=== PATIENT | female | born 1990 | race Caucasian/White ===

== ENCOUNTER → 2019-06-09 11:09 | Outpatient (CLI) | payer OTHER, SELFPAY ==
[2019-06-09 11:58] LABS: Add Manual Diff / Slide Review NO; Basophils Absolute Auto 0 /uL (0-100); Basophils Percent Auto 0.3 % (0-2); Eosinophils Absolute Auto 0 /uL (0-450); Eosinophils Percent Auto 0.3 % (2-4); Lymphocytes Absolute Auto 1800 /uL (1100-4500); Lymphocytes Percent Auto 15.1 % (25-40); Mean Corpuscular HGB Conc 34.1 % (30-36); Mean Corpuscular Hemoglobin 27.9 PG (26-34); Monocytes Absolute Auto 600 /uL (0-900); Monocytes Percent Auto 5.2 % (3-14); Neutrophils Absolute Auto 9500 /uL (1500-7000); Neutrophils Percent Auto 79.1 % (50-75); Platelet Count 285 X10^3/uL (150-400); Red Cell Distribution Width 13.6 % (11.6-14.8)
[2019-06-09 12:21] LABS: Appearance Urine UA SL CLOUDY; Bilirubin Urine UA NEGATIVE (NEGATIVE); Color Urine UA YELLOW; Glucose Urine UA NEGATIVE (Negative); Ketones Urine UA TRACE (NEGATIVE); Leukocyte Esterase Urine UA 3+ (NEGATIVE); Nitrite Urine UA NEGATIVE (Negative); Occult Blood Urine UA TRACE-INTACT (Negative); Protein Urine UA TRACE (Negative); Urobilinogen Urine UA 0.2 E.U./dL (0.2)
[2019-06-09 12:40] LABS: Squamous Epithelial Cell Urine 10-30 /HPF (0-5/HPF)
[2019-06-09 12:41] LABS: WBC Urine 30-100/HPF (0-5/HPF)
[2019-06-09 12:43] LABS: Bacteria Urine Many (>30); RBC Urine 1-5/HPF (0-5/HPF)
[2019-06-09 13:46] LABS: Urine N gonorrhoeae NOT DETECTED
[2019-06-09 13:54] LABS: Urine Chlamydia NOT DETECTED
[2019-06-09 18:25] LABS: Hepatitis B Surface Antigen NEGATIVE s/c (NEGATIVE)
[2019-06-09 18:55] LABS: HIV 1 & 2 Ab/Ag 4th Gen Combo NEGATIVE (NEGATIVE); Hep C Virus Ab w/Reflex Quant NEGATIVE s/c (NEGATIVE)
[2019-06-10 14:44] LABS: RPR Screen Non Reactive (Non Reactive)
[2019-06-10 14:49] LABS: Varicella IgG Antibody <135 index (Immune >165)
== END ==
PROVIDERS: Referring Provider Specialist; Visit Provider Specialist
DX: Z34.81 Encounter for supervision of other normal pregnancy, first trimester (principal)
CPT/HCPCS: 36415; 80055; 81003; 81015; 86787; 86803; 86850; 86900; 86901; 87086; 87389; 87491; 87591

== ENCOUNTER → 2019-08-02 10:42 | Outpatient (CLI) | payer OTHER, SELFPAY ==
--- NOTE | 2019-08-02 10:44 | DI.US.S_ITS ---
PROCEDURE: US OB >= 14 WEEKS FETUS INDICATIONS: 20 WEEK ANATOMY SCAN OUTSIDE/PRIOR DATING DATA: Last menstrual period (LMP): 03/09/19. LMP-based estimated date of delivery (CUH): 12/14/19. First dating scan (date and location): 05/12/19, [place]. Estimated date of delivery (CHU) from first dating scan: 12/11/19. TECHNIQUE: Real-time scanning was performed of the fetus, with image documentation and biometric measurements. COMPARISON: [facility], , OB >= 14 WEEKS FETUS, 07/07/2019, 12:25. [facility], , OB <= 14 WEEKS FETUS, 05/12/2019, 15:34. FINDINGS: General: A single live intrauterine gestation is present. Presentation: Breech. Placenta: Placental position is fundal/posterior, without previa. Amniotic fluid index: 13.9 cm, normal range is 5-24 cm. heart rate: 160 beats per minute. Maternal cervical canal: 4.4 cm long. Normal lower limit is 2.5 cm. biometrics: Biparietal diameter: 5.1 cm equals 21 weeks 3 days Head circumference: 19 cm 21 weeks 2 days Abdominal circumference: 16.1 cm equals 21 weeks 1 day Femur length: 3.6 cm equals 21 weeks 2 days Estimated gestational age from initial scan: 21 weeks 2 days Composite gestational age from present scan: 21 weeks 2 days Estimated weight and percentile: 411 g, 43 Measurement variability for biometric dating: +/- 7 days from 14 weeks to 15 weeks 6 days gestation, +/- 10 days from 16 weeks to 21 weeks 6 days gestation, +/- 2 weeks from 22 weeks to 27 weeks 6 days gestation, +/- 3 weeks for 28 weeks gestation or later. weight reference: 4500 g or EFW >90/95% is considered macrosomia or large for gestational age. EFW <10% is small for gestational age. EFW 5% or less is considered intra-uterine growth restriction. Anatomic survey: Neuro: Ventricles are non-dilated at less than 10 mm. Cisterna magna is normal at 3-11 mm. Cerebellum is normal in size and morphology. Nuchal skin fold: Normal at less than 6 mm between 14-21 weeks gestational age. Face: Nose and lips, facial profile are normal. Spine: No evidence for spina bifida. Heart: 4-chambered heart is present, with normal ventricular outflow tracts. Diaphragm: Diaphragm is intact. Stomach: Left-sided stomach is present. Kidneys: No hydronephrosis. Normal is less than 5 mm in 2nd trimester, less than 7 mm in 3rd trimester. Cord: 3-vessel cord has orthotopic insertion. Bladder: Normal in size. Extremities: All 4 extremities identified. IMPRESSION: A single live intrauterine is seen. No anatomic abnormalities are identified. No significant discrepancy is found between the estimated gestational age based on these images and the estimated gestational age based upon the given prior dating. Dictated by: Ifeanyi Coulter M.D. on 08/02/2019 at 14:53 Approved by: Ifeanyi Coulter M.D. on 08/02/2019 at 14:55
== END ==
PROVIDERS: Referring Provider Specialist; Visit Provider Specialist
DX: Z34.82 Encounter for supervision of other normal pregnancy, second trimester (principal); Z3A.21 21 weeks gestation of pregnancy
CPT/HCPCS: 76811

== ENCOUNTER → 2019-09-08 10:04 | Outpatient (CLI) | payer OTHER, SELFPAY ==
[2019-09-08 11:46] LABS: Hematocrit 36.3 % (36-46); Hemoglobin 12.3 g/dL (12.0-16.0)
[2019-09-08 12:14] LABS: GTT (PREG) 1 Hour PP 50gm Dose 95 mg/dL (76-139)
== END ==
PROVIDERS: PCP Family Medicine; Referring Provider Specialist; Visit Provider Specialist
DX: Z34.82 Encounter for supervision of other normal pregnancy, second trimester (principal)
CPT/HCPCS: 36415; 82950; 85014; 85018

== ENCOUNTER → 2019-11-17 12:12 | Outpatient (CLI) | payer OTHER, SELFPAY ==
[2019-11-18 10:29] LABS: Strep Grp B PCR NEG for Grp B Strep
== END ==
PROVIDERS: PCP Family Medicine; Visit Provider Specialist
DX: Z34.83 Encounter for supervision of other normal pregnancy, third trimester (principal); Z3A.36 36 weeks gestation of pregnancy
CPT/HCPCS: 87086; 87653

== ENCOUNTER 2019-12-08 15:44 | Outpatient (CLI) | payer OTHER, SELFPAY ==
[2019-12-08 16:50] LABS: Add Manual Diff / Slide Review NO; Basophils Absolute Auto 100 /uL (0-100); Basophils Percent Auto 0.4 % (0-2); Eosinophils Absolute Auto 0 /uL (0-450); Eosinophils Percent Auto 0.1 % (2-4); Hematocrit 37.9 % (36-46); Hemoglobin 12.8 g/dL (12.0-16.0); Lymphocytes Absolute Auto 1600 /uL (1100-4500); Lymphocytes Percent Auto 12.7 % (25-40); Mean Corpuscular HGB Conc 33.6 % (30-36); Mean Corpuscular Hemoglobin 28.1 PG (26-34); Mean Corpuscular Volume 83.6 fL (80-100); Monocytes Absolute Auto 900 /uL (0-900); Neutrophils Absolute Auto 10100 /uL (1500-7000); Neutrophils Percent Auto 79.8 % (50-75); Platelet Count 223 X10^3/uL (150-400); Red Blood Cell Count 4.54 X10^6/uL (4.0-5.2); Red Cell Distribution Width 14.8 % (11.6-14.8); White Blood Cell Count 12.6 X10^3/uL (4.5-11.0)
[2019-12-08 16:55] LABS: Aspartate Aminotransferase 20 IU/L (14-36); BUN Creatinine Ratio 13.1 (6-22); Blood Urea Nitrogen 8 mg/dL (7-17); Estimated Glomerular Filt Rate > 60.0 mL/min (>60); Uric Acid 5.5 mg/dL (2.5-6.2)
--- NOTE | 2019-12-27 07:20 | P.TNLD_ITS ---
Visit Information Visit Information Date of evaluation: 12/08/19 Primary OB Provider: Pauly Rivera On-call OB Provider: Breann Islas Reason for Evaluation: Yes non-stress test [facility] Medical History (Updated 12/17/19 @ 08:53 by Pauly Rivera MD) Asthma (Acute) Infertility (Inactive) Left elbow fracture (Acute) (spontaneous vaginal delivery) (Acute ~2016) Surgical History (Updated 05/05/19 @ 09:30 by Yolanda Kate, RN) History of open reduction and internal fixation (ORIF) procedure (Acute) Family History (Updated 05/05/19 @ 09:33 by Yolanda Kate, ROSE) Mother Hypothyroidism Father Unknown whether patient has any health problems Grandfather Cancer Grandmother No problems noted. Social History marital status: number of children: 1 household members: spouse and children pets and animals: Yes (dogs X 2) education level: high school occupational status: employed Previous occupational history: Smoking Status: Never smoker second hand exposure: No alcohol intake: former (occasionally non-) substance use type: does not use Objective Labs Result Diagrams: 12/08/19 16:35 12/08/19 16:35 Evaluation Evaluation Baseline heart rate: 130 Variability: Moderate (11-25) monitor accelerations: Present monitor decelerations: Absent Uterine Contraction Intensity: Mild (irritability) Category of Tracing: Reactive Laboratory results: Laboratory Tests 12/08/19 12/08/19 16:35 16:35 WBC 12.6 H RBC 4.54 Hgb 12.8 Hct 37.9 MCV 83.6 MCH 28.1 MCHC 33.6 RDW 14.8 Plt Count 223 Neut % (Auto) 79.8 H Lymph % (Auto) 12.7 L [place] % (Auto) 7.0 Eos % (Auto) 0.1 L Baso % (Auto) 0.4 Neut # (Auto) 99847 H Lymph # (Auto) 1600 [place] # (Auto) 900 Eos # (Auto) 0 Baso # (Auto) 100 BUN 8 Creatinine 0.61 Estimated GFR > 60.0 BUN/Creatinine Ratio 13.1 Uric Acid 5.5 AST 20 Diagnosis, Plan/Disposition Plan/Disposition Plan: Assessment: Reactive nonstress test Plan: Discharge to home OB Disposition: home
== END 2019-12-08 17:30 | disposition home or self-care (01) ==
LOC: LABOR 15:58 → OB 12-09 07:05
PROVIDERS: PCP Family Medicine; Referring Provider Obstetrics & Gynecology; Visit Provider Obstetrics & Gynecology
DX: Z34.83 Encounter for supervision of other normal pregnancy, third trimester (principal); Z3A.39 39 weeks gestation of pregnancy
CPT/HCPCS: 59025; 59050; 84450; 84550; 85025; G0378; G0379

== ENCOUNTER 2019-12-16 | Inpatient (IN) | payer OTHER, SELFPAY ==
[2019-12-16] MEDS: LACTATED RINGERS 1,000 ML 100 ML IV ×2 (00:35→03:52)
[2019-12-16 00:52] LABS: Add Manual Diff / Slide Review NO; Basophils Absolute Auto 100 /uL (0-100); Basophils Percent Auto 0.6 % (0-2); Eosinophils Absolute Auto 0 /uL (0-450); Eosinophils Percent Auto 0.1 % (2-4); Hematocrit 38.9 % (36-46); Hemoglobin 13.2 g/dL (12.0-16.0); Lymphocytes Absolute Auto 2300 /uL (1100-4500); Lymphocytes Percent Auto 14.3 % (25-40); Mean Corpuscular HGB Conc 33.8 % (30-36); Mean Corpuscular Hemoglobin 28.2 PG (26-34); Mean Corpuscular Volume 83.5 fL (80-100); Monocytes Absolute Auto 1000 /uL (0-900); Monocytes Percent Auto 6.2 % (3-14); Neutrophils Absolute Auto 12500 /uL (1500-7000); Neutrophils Percent Auto 78.8 % (50-75); Platelet Count 239 X10^3/uL (150-400); Red Blood Cell Count 4.66 X10^6/uL (4.0-5.2); White Blood Cell Count 15.9 X10^3/uL (4.5-11.0)
[2019-12-16 01:05] LABS: COVID19 -Nasal RAPID Negative (Negative)
[2019-12-16] MEDS: FENT 2MCG/ML BUPIV 0.125% EPI 200 MCG/100 ML PLAST..BAG 10 MCG EPIDURAL (01:25)
[2019-12-16 02:00] VITALS: BP 142/94
--- NOTE | 2019-12-16 06:19 | PM.OBHP.1 ---
OB HPI Date/Time Date of admission: 12/15/19 Date Patient Seen: 12/16/19 Time Patient Seen: 06:20 History of Present Condition Chief complaint: Evaluation of labor : 3 Para: 1 Estimated Date of Delivery: 12/14/19 Estimated Gestational Age (weeks): 40+2 Narrative: Afshan Squires is a 29 year old female 3 para 1 at 40-,2/7 weeks gestation who presented in active labor History of Present care: good care, initiated at week #, number of visits (14) and pounds weight gain (20) Dating criteria: LMP confirmed by 1st trimester US Ultrasounds: normal 1st trimester US and normal mid trimester US Obstetrical complications: none Medical complications: none Preadmission Labs Blood type: A (+) positive -: Antibody screen: negative, GBS status: negative, HBsAG: negative, HIV: negative and RPR/VDLR: negative -: Chlamydia screen: not detected and Gonorrhea screen: not detected -: Rubella: immune and Varicella: not immune HCT: 38.9 HCAB: negative Urine: Negative 1 hr GTT: 95 Prior (ies) History: Evaluation Evaluation Baseline heart rate: 135 Variability: Moderate (11-25) monitor accelerations: Present monitor decelerations: Absent Contraction Frequency (minutes): 3 Uterine Contraction Intensity: Strong/Firm Category of Tracing: Reactive Cervical dilation (cm): 10 Cervical effacement (%): 100 station: +2 Laboratory results: Laboratory Tests 12/16/19 12/16/19 12/16/19 00:30 00:30 00:30 WBC 15.9 H RBC 4.66 Hgb 13.2 Hct 38.9 MCV 83.5 MCH 28.2 MCHC 33.8 RDW 15.0 H Plt Count 239 Neut % (Auto) 78.8 H Lymph % (Auto) 14.3 L [place] % (Auto) 6.2 Eos % (Auto) 0.1 L Baso % (Auto) 0.6 Neut # (Auto) 23782 H Lymph # (Auto) 2300 [place] # (Auto) 1000 H Eos # (Auto) 0 Baso # (Auto) 100 COVID-19 PCR Negative Blood Type A Positive Antibody Screen Negative PFSH Medical History (Updated 05/13/19 @ 08:13 by Pauly Rivera MD) Asthma (Acute) Infertility (Inactive) Left elbow fracture (Acute) (spontaneous vaginal delivery) (Acute ~2016) Surgical History (Updated 05/05/19 @ 09:30 by Yolanda Kate, RN) History of open reduction and internal fixation (ORIF) procedure (Acute) Family History (Updated 05/05/19 @ 09:33 by Yolanda Kate, RN) Mother Hypothyroidism Father Unknown whether patient has any health problems Grandfather Cancer Grandmother No problems noted. Social History marital status: number of children: 1 household members: spouse and children pets and animals: Yes (dogs X 2) education level: high school occupational status: employed Previous occupational history: Smoking Status: Never smoker second hand exposure: No alcohol intake: former (occasionally non-) substance use type: does not use Meds Home Medications and Allergies Home Medications Medication Instructions Recorded Confirmed Type prenat.vits,leopoldo,hdw-icnz-qzsik 1 tab PO DAILY 05/05/19 12/16/19 History Double Electric breast Pump and #1 each 10/28/19 12/16/19 Rx Supplies Allergies Allergy/AdvReac Type Severity Reaction Status Date / Time cefazolin [From Ancef] Allergy Intermediate Rash Verified 12/16/19 02:13 Exam Vital Signs (past 8 hours): - 12/16/19 02:00 Blood Pressure 142/94 H Narrative Exam Narrative: Generally: Patient very comfortable with epidural Fundal height: 39 cm Estimated weight: 8 lb Extremities: Trace edema, 1+ DTRs Objective Labs Result Diagrams: 12/16/19 00:30 Labs: Laboratory Results - last 24 hr 12/16/19 12/16/19 12/16/19 00:30 00:30 00:30 WBC 15.9 H RBC 4.66 Hgb 13.2 Hct 38.9 MCV 83.5 MCH 28.2 MCHC 33.8 RDW 15.0 H Plt Count 239 Neut % (Auto) 78.8 H Lymph % (Auto) 14.3 L [place] % (Auto) 6.2 Eos % (Auto) 0.1 L Baso % (Auto) 0.6 Neut # (Auto) 84131 H Lymph # (Auto) 2300 [place] # (Auto) 1000 H Eos # (Auto) 0 Baso # (Auto) 100 COVID-19 PCR Negative Blood Type A Positive Antibody Screen Negative Assessment and Plan Assessment and Plan Assessment and Plan narrative: Assessment: 29-year-old 3 para 1 at 40-,2/7 weeks gestation in active labor, entering 2nd stage Comfortable with an epidural Plan: Artificial rupture of membranes performed with clear amniotic fluid Expected management to spontaneous vaginal delivery Time Spent with Patient Total time spent with greater than 50% in coordination of care (as documented) at patient's floor/unit and/or counseling patient:: 15-24 minutes
--- NOTE | 2019-12-16 07:14 | PM.OBPRVD ---
Labor & Delivery Delivery date: 12/16/19 Cervical ripening method: none Induction method: none Delivery augmentation: rupture of membranes Delivery monitor: external FHT and external uterine Route of delivery: Episiotomy description: None L&D Laceration Description: Superficial (Bilateral labial and introitus) Delivery repair: chromic (4-0) Estimated blood loss (mL): 150 Anesthesia type: Epidural Complications: None Narrative: Patient complete and pushed for 30 minutes. At 6:42 a.m., a live female delivered spontaneously over an intact perineum in the NA presentation. No nuchal cord. The remainder of the body delivered without difficulty and was placed on mom's abdomen. The cord was double clamped and cut after it stopped pulsing. 10 units of Pitocin were placed in the IV fluids. The placenta delivered intact with a three-vessel cord at 6:49 a.m.. Fundus was massaged to firm. The perineum was inspected and there were bilateral superficial labial lacerations as well as a superficial introitus laceration. These were repaired in the usual fashion using 4 -0 chromic. Hemostasis was achieved. The [place] catheter had been removed when pushing started. Apgars 9 at 1 minute and 9 at 5 minutes. . Epidural analgesia. Mom and stable to recovery.
[2019-12-16] MEDS: LANOLIN OINT 7 GM 1 APPLIC TOP (11:37)
[2019-12-16] MEDS: IBUPROFEN 600 MG TABLET PO ×2 (11:37→18:30)
[2019-12-16] MEDS: DERMOPLAST SPRAY 20% 60 ML 1 SPRAY TOP (11:37)
[2019-12-17] MEDS: ACETAMINOPHEN 325 MG TABLET 650 MG PO (00:46)
[2019-12-17] MEDS: IBUPROFEN 600 MG TABLET PO ×2 (00:46→07:41)
[2019-12-17] MEDS: OXYCODONE/ACETAMINOPHEN 5/325 TABLET 1 TAB PO (05:21)
[2019-12-17 06:25] LABS: Hematocrit 39.6 % (36-46)
[2019-12-17] MEDS: PRENATAL VIT,CALC/IRON/FOLIC 1 TABLET 1 TAB PO (07:40)
[2019-12-17 07:41] VITALS: TEMP 36.8
[2019-12-17] MEDS: DOCUSATE 100 MG CAPSULE PO (07:41)
--- NOTE | 2019-12-17 08:53 | P.DS_ITS ---
Discharge Providers Provider Date of admission: 12/16/19 00:00 Discharge Date: 12/17/19 Primary care physician: Giselle Sr DO Consults: 12/16/19 00:20 Consult to Anesthesiology Urgent Comment: Consulting Provider: Anesthesiologist Reason for consultation: Epidural Has provider been notified: No 12/17/19 07:17 Consult to [employer] Routine Comment: Discharge provider: Pauly Rivera MD Summary Hospital Course Date Patient Seen: 12/17/19 Time Patient Seen: 08:53 Procedures: Epidural catheter, spontaneous vaginal delivery, superficial labial tear repair Hospital Course: Patient arrived on Labor and delivery in active labor. She received an epidural catheter for pain control. She had a spontaneous vaginal delivery of a viable female infant. Both infant mother doing well. Peripartum Data Infant Delivery Method: Natural Vaginal Laceration Description: Superficial complications: none 1: Gender: Female Disposition of : home Discharge Diagnosis (1) Vaginal delivery: Status: Acute Status at Discharge Cognitive/behavioral status at discharge: oriented Functional status at discharge: independent ambulation Overall status at discharge: patient is progressing back to baseline Time Spent with Patient Time attestation: Total time spent providing and/or coordinating discharge services: Time spent: Less than 30 minutes Objective Labs Result Diagrams: 12/17/19 06:15 Labs: Laboratory Results - last 24 hr 12/17/19 06:15 Hgb 13.0 Hct 39.6 Exam Vital Signs (past 8 hours): - Blood pressure 128/78, pulse of 80, temperature 98.5? 12/17/19 07:41 Temperature 98.3 F Narrative Exam Narrative: Abdomen is soft, nontender. Uterus is firm, at U, nontender. Mild lochia. Extremities without edema and nontender. Patient's blood type is A positive, she is rubella immune, she received the Tdap in the 3rd trimester. Discharge Plan Discharge Plan Patient Disposition: Home Discharge orders & Medications Prescriptions: New oxycodone-acetaminophen 5-325 mg Tablet 1 tab PO Q4HR PRN (Reason: Pain, Moderate (4-6)) Qty: 20 RF: 0 ibuprofen 600 mg Tablet 600 mg PO Q6HR PRN (Reason: Pain, Mild (1-3)) Qty: 20 RF: 0 Continued (DME) Double Electric breast Pump and Supplies See Rx Instructions .ROUTE .MEDSUPPLY Qty: 1 RF: 0 prenat.vits,leopoldo,ftn-kuno-qcool Tablet 1 tab PO DAILY RF: 0 Follow up/Referrals: Giselle Villalpando DO [Primary Care Provider] - Pauly Rivera MD [Physician] - 1 Month ( exam) Diet/Activity/Treatments Diet: Regular Activity: Nothing in vagina for 4 weeks Skin/Wound/Dressing Care Report to your healthcare provider any signs of infection, such as:: chills, fever and increased pain Discharge Data Primary Care Provider: Giselle Villalpando
[2019-12-17 12:44] VITALS: BP 118/72; PULSE 92; RESP 18; TEMP 36.3
== END 2019-12-17 18:00 | disposition home or self-care (01) | DRG 807 ==
PROVIDERS: Specialist; Admitting Provider Obstetrics & Gynecology; PCP Family Medicine; Referring Provider Obstetrics & Gynecology; Visit Provider Obstetrics & Gynecology
DX: O48.0 Post-term pregnancy (principal); Z37.0 Single live birth; O70.0 First degree perineal laceration during delivery; Z3A.40 40 weeks gestation of pregnancy; Z11.59 Encounter for screening for other viral diseases
CPT/HCPCS: 01967; 36415; 59050; 59400; 59409; 85014; 85018; 85025; 86850; 86900; 86901; 87635; G0379

== ENCOUNTER → 2019-12-27 10:38 | Outpatient (CLI) | payer OTHER, SELFPAY ==
[2019-12-29 08:13] LABS: COVID19 Sendout Positive (Not Detect)
== END ==
PROVIDERS: PCP Family Medicine; Visit Provider Physician Assistant
DX: U07.1 COVID-19 (principal)
CPT/HCPCS: 87635